=== PATIENT | female | born 1995 | race Caucasian/White ===

== ENCOUNTER 2024-06-08 06:52 | Outpatient (REF) | payer OTHER, SELFPAY ==
--- OUTSIDE RECORDS SUMMARY | 2024-06-08 06:55 | XMS_ITS | Encounter Summary ---
Author Organization [facility] Address [address] [place] [address] Care Team Providers Care Bilingual Teacher Assistant Name Role Phone Unknown Primary Care Provider [phone] Encounter Details Date Type Department Care Team (Late st Contact Info) Description 12/14/2022 2:43 PM EDT Hospital Encounter [facility][note 3] Urgent Care [address] [place] [address] Social History Tobacco Use Types Packs/Day Years Used Date Smoking Tobacco: Former Cigarettes Smokeless Tobacco: Never Alcohol Use Standard Drinks/Week Comments Yes 0 (1 standard drink = 0.6 oz pur e alcohol) Sex and Gender Information Value Date Recorded Sex Assigned at Female 12/14/2022 2:09 PM EDT Gender Identity Not on file Sexual Orientation Not on file documented as of this encounter Plan of Treatment Not on file documented as of this encounter Procedures Procedure Name Priority Date/Time Associated Diagnosis Comments XR TOE (2ND) 2+ VIEWS-RIGHT Routine 12/14/2022 2:49 PM EDT Toe injury, right, initial encounter documented in this encounter Results * XR Toe (2nd) 2+ views-Right (12/14/2022 2:49 PM EDT) Anatomical Region Laterality Modality Foot Right Computed Radiogr aphy 12/14/2022 3:02 PM EDT Impressions 12/14/2022 3:02 PM EDT No significant osseous abnormality detected. Narrative 12/14/2022 3:02 PM EDT XR TOE (2ND) 2+ VIEWS-RIGHT: 12/14/2022 2:43 PM CLINICAL HISTORY: RIght 2nd toe pain s/p injury; rule out fracture. Toe injury, right, initial encounter. FINDINGS: The osseous structures are intact. There is no evidence of degenerative change. There is no evidence of significant arthropathy. There is no evidence of pathologic calcifications or soft tissue swelling. Procedure Note Erwin Liu MD - 12/14/2022 XR TOE (2ND) 2+ VIEWS-RIGHT: 12/14/2022 2:43 PM CLINICAL HISTORY: RIght 2nd toe pain s/p injury; rule out fracture. Toe injury, right,initial encounter. FINDINGS: The osseous structures are intact. There is no evidence of degenerativechange. There is no evidence of significant arthropathy. There is noevidence of pathologic calcifications or soft tissue swelling. IMPRESSION: No significant osseous abnormality detected. [facility] ORDERABLES documented in this encounter Visit Diagnoses Not on filedocumented in this encounter Care Teams Bilingual Teacher Assistant Relationship Specialty Start Date End Date Unknown Unknow Provider Address PCP - General 12/14/22 documented as of this encounter
--- OUTSIDE RECORDS SUMMARY | 2024-06-08 06:55 | XMS_ITS | Clinical Summary ---
Author Organization [facility] Address [address] [place] [address] Care Team Providers Care Photographic Equipment Inspector Name Role Phone Unknown Primary Care Provider [phone] Allergies No known active allergies Medications No known medications Social History Tobacco Use Types Packs/Day Years Used Date Smoking Tobacco: Former Cigarettes Smokeless Tobacco: Never Tobacco Cessation:Counseling Given: Not Answered Alcohol Use Standard Drinks/Week Comments Yes 0 (1 standard drink = 0.6 oz pur e alcohol) Sex and Gender Information Value Date Recorded Sex Assigned at Female 12/14/2022 2:09 PM EDT Gender Identity Not on file Sexual Orientation Not on file Last Filed Vital Signs Vital Sign Reading Time Taken Comments Blood Pressure 118/78 12/14/2022 2:19 PM EDT Pulse 75 12/14/2022 2:19 PM EDT Temperature 36.7 ??C (98 ??F) 12/14/2022 2:19 PM EDT Respiratory Rate - - Oxygen Saturation 98% 12/14/2022 2:19 PM EDT Inhaled Oxygen Concentration - - Weight - - Height - - Body Mass Index - - Plan of Treatment Health Maintenance Due Date Last Done Comments Hepatitis C Virus Screening 1996 HIV Screening 2009 DTaP/Tdap/Td Vaccines (1 - Tdap) 2015 Hepatitis B Vaccines (1 of 3 - 19+ 3-dose series) 2015 Pap Smear (Ages 21-65) 2017 Influenza Vaccine 11/25/2023 COVID-19 Vaccine (2023-2 5 season) 2023 06/07/2021, 12/01/2020, 11/10/2020 HPV Vaccines Aged Out No longer eligi ble based on patient's age to complete this topic Pneumococcal Vaccine: Pediatric (0-5 Years) and At-Risk Patients (6 to 49 Years) Aged Out No longer eligible b ased on patient's age to complete this topic Care Teams Photographic Equipment Inspector Relationship Specialty Start Date End Date Unknown Unknow Provider Address PCP - General 12/14/22
--- OUTSIDE RECORDS SUMMARY | 2024-06-08 06:55 | XMS_ITS ---
Author Name [facility] Organization Unknown Problems Problem Status Onset Date Problem Type Date of Resoluti on Source Toe sprain, initial encounter active EncounterDiagnosisAct [facility] Toe injury, right, initial encounter active EncounterDiagnosisAct H [facility]
== END 2024-06-08 06:53 | disposition home or self-care (01) ==
LOC: HO.UMASIMG 06:52
PROVIDERS: Visit Provider Family Medicine
DX: R10.9 Unspecified abdominal pain (principal); J30.9 Allergic rhinitis, unspecified; E06.0 Acute thyroiditis
CPT/HCPCS: 76536

== ENCOUNTER → 2024-06-08 14:30 | Outpatient (BNV) | payer OTHER, SELFPAY | PROVIDERS: Visit Provider Radiology Diagnostic Radiology | DX: E06.0 Acute thyroiditis (principal) | CPT/HCPCS: 76536 ==